=== PATIENT | female | born 1990 | race Caucasian/White ===

== ENCOUNTER → 2019-09-15 15:10 | Outpatient (CLI) | payer OTHER, SELFPAY ==
--- NOTE | 2019-09-15 | DI.ECHO.S_ITS ---
[place] [facility]---------+ [facility] +---------+ : : [address] : [address] : : : : [id number] : : : : Phone: [phone] +---------+ Echocardiogram Report + + :Name: NIESHA VENTURA Study Date: 09/15/2019 Height: 65 in : :[facility] Weight: 190 lb : : Gender: Female BSA: 1.9 m2 : :: 1990 Age: 29 yrs BP: 116/80 mmHg: :Reason For Study: Arrhythmia : : Performed By: Guevara Victoria : :Referring: SAMAN MAHER : + + Interpretation Summary The ejection fraction is estimated to be 55-60%. There is no significant valvular heart disease. Procedure: A two-dimensional transthoracic echocardiogram with color flow and Doppler was performed. The study quality was technically adequate. There is no prior echocardiogram noted for this patient. The patient was in normal sinus rhythm during the exam. Left Ventricle: The left ventricle is normal in size. There is normal left ventricular wall thickness. Left ventricular systolic function is normal. The ejection fraction is estimated to be 55-60%. Left ventricular wall motion is normal. Right Ventricle: The right ventricle is normal in size and function. Atria: The left atrial size is normal. Right atrial size is normal. The interatrial septum is intact with no evidence for an atrial septal defect. Mitral Valve: The mitral valve is normal in structure and function. There is no mitral regurgitation noted. Aortic Valve: The aortic valve is trileaflet. The aortic valve opens well. No aortic regurgitation is present. Tricuspid Valve: The tricuspid valve is normal in structure and function. No tricuspid regurgitation. Pulmonic Valve: The pulmonic valve is normal in structure and function. There is no pulmonic valvular regurgitation. Great Vessels: The aortic root is normal size. The dimensions of the ascending aorta are normal. The pulmonary artery is normal size. The IVC is of normal diameter and collapses greater than 50% with a sniff. This suggests a low right atrial pressure of 3 mm Hg. Pericardium/ Pleura There is no pericardial effusion. There is no pleural effusion. MMode/2D Measurements & Calculations LVIDd: 4.7 cm LVOT diam: 2.0 cm LVIDs: 3.2 cm Ao root diam: 2.6 cm FS: 30.7 % Aortic Jxn: 2.5 cm EPSS: 0.74 cm Ao Arch Diam (Prox Trans): 2.4 cm IVSd: 1.0 cm LVPWd: 0.93 cm LV qiu. diameter/BSA (cm/m^2): 2.4 LV sys. diameter/BSA (cm/m^2): 1.7 LA A2 area: 10.8 cm2 RA long axis: 4.3 cm LA A4 area: 15.1 cm2 RA area: 10.8 cm2 LA length (vol): 4.3 cm RA vol: 23.2 ml LA vol: 32.2 ml RA : 12.0 ml/m2 LA vol index: 16.6 ml/m2 IVC diam: 2.0 cm TAPSE: 2.0 cm Doppler Measurements & Calculations Ao V2 max: 107.1 cm/sec LVOT Max Jesse: 81.5 cm/sec Ao V2 mean: 79.2 cm/sec LV V1 max P.7 mmHg Ao max P.6 mmHg LV V1 VTI: 15.5 cm Ao mean P.7 mmHg BEN(I,D): 2.6 cm2 Ao V2 VTI: 18.0 cm BEN(V,D): 2.3 cm2 sev ratio: 0.86 BEN indexed to BSA (cm^2/m^2): 1.3 MV E max jesse: 41.3 cm/sec PA V2 max: 70.4 cm/sec MV A max jesse: 50.3 cm/sec PA V2 mean: 51.8 cm/sec MV E/A: 0.82 PA mean P.2 mmHg Med Peak E' Jesse: 12.3 cm/sec PA Accel Time: 0.13 sec E/E' med: 3.4 Lat Peak E' Jesse: 13.0 cm/sec E/E' lat: 3.2 E/e' average: 3.3 MV dec time: 0.13 sec SV(LVOT): 47.0 ml Reading Physician:08:53 AM
== END ==
PROVIDERS: Visit Provider Physician Assistant
DX: I49.9 Cardiac arrhythmia, unspecified (principal); R00.0 Tachycardia, unspecified
CPT/HCPCS: 93306